=== PATIENT | male | born 1960 | race African-American/Black ===

== ENCOUNTER 2016-12-08 12:04 | Emergency (ER) | payer MEDICAID, MEDICARE ==
[~2016-12-08] VITALS: Ht 172.7 cm; Wt 78.0 kg
[2016-12-08 15:51] VITALS: BP 117/85
== END 2016-12-08 15:54 | disposition home or self-care (01) ==
LOC: ER 14:53
DX: K04.7 Periapical abscess without sinus (principal); R22.0 Localized swelling, mass and lump, head
CPT/HCPCS: 99283